=== PATIENT | female | born 1970 | race Caucasian/White ===

== ENCOUNTER 2017-12-24 06:11 | Day surgery (SDC) | payer OTHER ==
[2017-12-24] MEDS ORDERED: SUCCINYLCHOLINE CHLORIDE 100 MG/5 ML SYG IV (07:00)
[2017-12-24] MEDS ORDERED: ACETAMINOPHEN 1000 MG/100 ML IVPB (07:00)
[2017-12-24] MEDS ORDERED: PROPOFOL 20 ML (07:26)
[2017-12-24] MEDS ORDERED: MIDAZOLAM 1 MG/ML 2 ML INJ (07:26)
[2017-12-24] MEDS ORDERED: ONDANSETRON 4 MG INJ (07:26)
[2017-12-24] MEDS ORDERED: DEXAMETHASONE 4 MG/ML 1 ML INJ (07:26)
[2017-12-24] MEDS ORDERED: FENTAnyl 50 MCG/ML VIAL (07:26)
[2017-12-24] MEDS ORDERED: METOCLOPRAMIDE 10 MG INJ (07:51)
[2017-12-24] MEDS ORDERED: CEFAZOLIN 2 GM/50 ML (PMX) 50 ML IVPB (08:00)
[2017-12-24] MEDS ORDERED: LACTATED RINGER'S 1,000 ML IV* (08:00)
[2017-12-24] MEDS: ROPIVACAINE 0.5 % 30 ML VIAL (08:06)
[2017-12-24] MEDS ORDERED: KETOROLAC 30 MG INJ (08:08)
[2017-12-24] MEDS ORDERED: FENTAnyl 50 MCG/ML VIAL IV ×2 (08:30)
[2017-12-24] MEDS ORDERED: MIDAZOLAM 1 MG/ML 2 ML INJ IV (08:30)
[2017-12-24] MEDS ORDERED: MEPERIDINE 25 MG INJ IV (08:30)
[2017-12-24] MEDS ORDERED: HYDROmorphONE (0.2 MG/ML) 10ML SYG IV (08:30)
[2017-12-24] MEDS ORDERED: hydrALAzine 20 MG INJ IV (08:30)
[2017-12-24] MEDS ORDERED: LABETALOL HCL 20MG INJ IV (08:30)
[2017-12-24] MEDS: ONDANSETRON 4 MG INJ IV (09:38)
[2017-12-24] MEDS: HYDROmorphONE (0.2 MG/ML) 10ML SYG IV (09:38)
== END 2017-12-24 10:56 | disposition home or self-care (01) ==
LOC: SDS 06:11
DX: G56.03 Carpal tunnel syndrome, bilateral upper limbs (principal); E11.9 Type 2 diabetes mellitus without complications; I10 Essential (primary) hypertension
CPT/HCPCS: 64721; 84703